=== PATIENT | male | born 1965 | race Caucasian/White ===

== ENCOUNTER 2016-06-20 05:24 | Inpatient (IN) | payer BC ==
[2016-06-13 17:24] LABS: HEMATOCRIT 45.7 % (40.0-51.0)
--- NOTE | ~2016-06-20 | OP ---
Record Of Operation [facility] [address] [place]. [address] NAME: CORINE MONTANEZ : 69 STATUS : ADM IN PAT#: [id number] AGE: 51 ADM/REG DATE : 06/20/16 MR#: [id number] REPORT SERV DATE: 06/20/16 DICTATED BY: KARL MARQUEZ DATE: 06/20/16 REPORT STATUS : Draft TRANSCRIBED BY: MODL DATE: 06/20/16 DATE OF PROCEDURE: PREOPERATIVE DIAGNOSES: 1. Grade 2 spondylolisthesis, severe spinal stenosis, right side, L4-5. 2. Gross instability, L4-5, secondary to the above. POSTOPERATIVE DIAGNOSES: 1. Grade 2 spondylolisthesis, severe spinal stenosis, right side, L4-5. 2. Gross instability, L4-5, secondary to the above. PROCEDURES: 1. Microscopic and navigation assisted surgery. 2. Right L4-5 hemilaminectomy, foraminotomy, facetectomy, transforaminal diskectomy, anterior interbody XPand cage. 3. Posterolateral interbody fusion with local bone graft allograft. 4. Posterior percutaneous Voyager instrumentation with reduction of spondylolisthesis, L4- 5. SURGEON: Karl Marquez D.O. VESSEL SLAGMAN: Hieu Olson. ANESTHESIA: General. BLOOD LOSS: 50 mL. INDICATIONS FOR SURGERY: Indications for surgery and risks were explained. They are listed in the last office note as well as the history and physical. See that for detail. DESCRIPTION OF PROCEDURE: Antibiotic prophylaxis given. Neurophysiology monitoring leads were inserted. The patient was brought to the operative suite. General anesthetic including endotracheal intubation was administered. Bowen catheter was placed with sterile technique. The patient was placed prone on a Sly spine frame. Bony prominences were carefully padded. Thoracolumbar spine scrubbed with Hibiclens solution. DuraPrep was painted. Sterile drapes applied. A small stab wound was carried out on a left posterior superior iliac spine. A percutaneous pin with navigational frame attached was inserted in the PSIS. Intraoperative CT scan with O-arm obtained. CT information used to register the navigational system. With navigational assistance, I identified L4-5 just lateral to the facet joint on the right side at L4-5. A 3 cm skin incision was carried out. A blunt navigated probe was placed through the fascia muscle and docked over the facet joint. Muscle dilators were inserted followed by placement of a tubular retractor attached to an arm mount on the table. The microscope was sterilely draped and used throughout the remainder of the procedure. Record Of Operation [facility] [address] [place]. [address] NAME: CORINE MONTANEZ : 69 STATUS : ADM IN PAT#: [id number] AGE: 51 ADM/REG DATE : 06/20/16 MR#: [id number] REPORT SERV DATE: 06/20/16 DICTATED BY: KARL MARQUEZ DATE: 06/20/16 REPORT STATUS : Draft TRANSCRIBED BY: BLANCA DATE: 06/20/16 With navigational assistance, I identified the top of the pedicle of L5 and the inferior pedicle of L4. I used a combination of a cutting bur, a tyrel bur, 2 and 3 mm Kerrison rongeurs and I dissected from lateral to medial removing the entire superior articular process of L5 down to the top of the pedicle. I removed the inferior articular process of L4, the lamina of L4, and I removed everything up to the pars defect. The reparative tissue in the pars defect was gently removed completely decompressing the thecal sac. The foramen was filled with disk material and found to have herniated posterior and rolled behind the body of L4. A transforaminal diskectomy was carried out with curettes, rongeurs, and disk lucía. Once the diskectomy and decompression were completed, the wound was irrigated. We then entered body trial. I packed the interbody space with local bone graft and allograft. The 32 mm XPand cage 10 mm in height originally was placed through the interbody grafts and seated against the anterior longitudinal ligament. The cage was expanded. A posterolateral interbody fusion was completed with additional bone grafting material. The retractor was then removed. On the left side, I carried out a 3 cm skin incision just lateral to the facet joint to match that on the right. Percutaneous Voyager pedicle tap and screw radiation officer were then used to tap the pedicles of L4 and 5 bilaterally. The polyaxial Voyager 7.5 x 55 mm screws were inserted at L4 and 5 bilaterally. After the screws were implanted, the 35 mm lordotic dumbbell rods were placed through the top portion of the screw extenders. The tha reduced into the tulip of the pedicle screws. The set screws inserted and tightened with a torque wrench providing rigid stability. Intraoperative CT scan with O-arm repeated showing excellent position of all implants. Final wound closure was carried out with usual fascial closure with 0 Vicryl sutures, subcutaneous tissue closed with 2-0 Vicryl sutures, 2-0 vertical mattress nylon suture used for skin closure. Sterile dressings applied. The patient awakened, extubated, and taken to the recovery room in satisfactory condition having tolerated procedure well. CODEY/BLANCA Karl Marquez D.O. / [id number] CC: Karl Marquez D.O.
--- NOTE | ~2016-06-20 | PREOPHP ---
PreOp History and Physical [facility] [address] [place]. [address] NAME: CORINE MONTANEZ : 69 STATUS : ADM IN PAT#: [id number] AGE: 51 ADM/REG DATE : 06/20/16 MR#: [id number] REPORT SERV DATE: 06/20/16 DICTATED BY: KARL MARQUEZ DATE: 06/20/16 REPORT STATUS : Draft TRANSCRIBED BY: MODIsmael DATE: 06/20/16 CHIEF COMPLAINT: Back pain, right greater than left leg pain. HISTORY OF PRESENT ILLNESS: This is a 51-year-old male with rather severe back pain, right hip, and leg pain that has been present for many months. The pain is 8 on a scale of 0 to 10. He has actually had some symptoms since he is a teenager, much worse recently. The patient's pain is much worse with increased activity. Nothing relieves the pain. He has been through lots of time, medication, therapy, conservative care of all types. He currently has a severe functional disability in activities of daily living as measured by the Oswestry Scale and he has a normal Zung depression score. The patient's plain x-rays revealed a grade 2 spondylolisthesis at L4-5. This is a lytic type 2 spondylolisthesis, not a degenerative spondylolisthesis. There was gross instability with lateral flexion and extensions. MRI shows severe foraminal stenosis on the right with impingement on the exiting L4 nerve root. The patient has failed conservative care, brought to surgery for a right-sided L4-5 hemilaminectomy, foraminotomy, facetectomy, transforaminal diskectomy, anterior interbody cage insertion, posterolateral interbody fusion with local bone graft allograft and posterior percutaneous Voyager instrumentation, with reduction of the spondylolisthesis. Prior to surgery, risks, benefits, alternatives, and expectations were explained in great detail. Consent form is signed. Please note, today the patient has been identified in preop raza. All questions were answered. The patient voiced understanding of the risks, willingness to accept those, and requested to proceed. Please note, because of the complexity of surgery and the need to identify the correct level of surgery intraoperatively as well as the desire to carry out the safest and most precise dissection, I felt intraoperative navigation was mandatory. PAST MEDICAL HISTORY: None. PAST SURGICAL HISTORY: He has had reconstruction of the tendon and then he had a surgery a year later for lysis of adhesions of the hand. CURRENT MEDICATIONS: Neurontin. ALLERGIES: NONE. SOCIAL HISTORY: He is . 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 Never smoked. Does not use any alcohol. FAMILY HISTORY: His father and mother had coronary artery disease. REVIEW OF SYSTEMS: Otherwise negative. PHYSICAL EXAMINATION: VITAL SIGNS: He is 6 feet 2 inches. Weight 250 pounds. PreOp History and Physical [address] [address] NAME: CORINE MONTANEZ : 69 STATUS : ADM IN [facility]#: [id number] AGE: 51 ADM/REG DATE : 06/20/16 MR#: [id number] REPORT SERV DATE: 06/20/16 DICTATED BY: KARL MARQUEZ DATE: 06/20/16 REPORT STATUS : Draft TRANSCRIBED BY: BLANCA DATE: 06/20/16 GENERAL: He is alert, cooperative, well oriented. Ambulates independently. HEENT: Exam is grossly normal. LUNGS: Clear to auscultation. HEART: Rate is regular and rhythmic. ABDOMEN: Soft with good bowel sounds. No peritoneal signs noted. MUSCULOSKELETAL: The spine has no gross deformities except that he can palpate the step-off when he flexes forward. He has limited range of motion due to the pain. He has no leg length discrepancy or pelvic obliquity. His motor strengths are normal except on the right side. His quadriceps is 4+ over 5. His tibialis anterior is 4-/5. He has decreased sensation in the L4 distribution to light touch. Patellar reflex on the right 1/4, all others are 2/4. No signs of myelopathy found. Toes are downgoing. No ankle clonus found. Sheng signs are negative. Fabere signs are negative. Orthopedically, he has no pain with moving hips, knees, or ankles. There are good pulses in all four extremities. No abnormal skin lesions are found. ASSESSMENT: Grade 2 spondylolisthesis, gross instability and severe foraminal stenosis on the right at L4-5. RECOMMENDATION: As listed above. CODEY/BLANCA Karl Marquez D.O. / [id number] CC: Karl Marquez D.O.
[~2016-06-20 05:24] MED LIST: *DENIES
[2016-06-20 11:39] LABS: BASOPHILS 0.6 %; BASOPHILS ABSOLUTE 0.04 10/3/uL (0.0-0.16); EOSINOPHILS 0.7 %; EOSINOPHILS ABSOLUTE 0.05 10/3/uL (0.0-0.53); HEMOGLOBIN 13.9 g/dL (13.6-17.8); IMMATURE GRANULOCYTES 0.6 %; IMMATURE GRANULOCYTES ABSOLUTE 0.04 10/3/uL (0.0-0.11); LYMPHOCYTES 14.4 %; LYMPHOCYTES ABSOLUTE 1.03 10/3/uL (0.67-4.30); MEAN CORPUS HGB CONC 32.3 g/dL (32.0-36.0); MEAN CORPUSCULAR HEMOGLOB 28.8 pg (26.0-34.0); MEAN PLATELET VOLUME 10.9 fL (9.2-13.0); MONOCYTES 2.5 %; MONOCYTES ABSOLUTE 0.18 10/3/uL (0.21-1.20); NEUTROPHILS 81.2 %; NEUTROPHILS ABSOLUTE 5.82 10/3/uL (2.02-8.40); PLATELET COUNT 166 10/3/uL (150-400); RBC DISTRIBUTION WIDTH 12.7 % (12.0-16.0); RED CELL COUNT 4.83 10/6/uL (4.7-6.1); WHITE BLOOD CELLS 7.2 10/3/uL (4.5-10.5)
[2016-06-20 11:40] LABS: MANUAL DIFF NO %
[2016-06-20 11:55] LABS: BUN (BLOOD UREA NITROGEN) 13 MG/DL (6-23); CALCIUM, SERUM 8.7 MG/DL (8.5-10.4); CHLORIDE, SERUM 110 MMOL/L (96-112); CO2 (CARBON DIOXIDE) 24 MMOL/L (24-34); CREATININE 1.37 MG/DL (0.70-1.30); GFR AFRICAN AMERICAN 70 ML/MIN (>=60); GFR NON AFRICAN AMERICAN 60 ML/MIN (>=60); GLUCOSE, SERUM 145 MG/DL (60-99); POTASSIUM, SERUM 4.4 MMOL/L (3.5-5.3); SODIUM, SERUM 142 MMOL/L (135-148)
[2016-06-21 04:51] LABS: BASOPHILS 0 %; EOSINOPHILS 0 %; HEMATOCRIT 41.8 % (40.0-51.0); HEMOGLOBIN 13.9 g/dL (13.6-17.8); IMMATURE GRANULOCYTES 0.2 %; IMMATURE GRANULOCYTES ABSOLUTE 0.02 10/3/uL (0.0-0.11); LYMPHOCYTES 3.8 %; LYMPHOCYTES ABSOLUTE 0.49 10/3/uL (0.67-4.30); MEAN CORPUS HGB CONC 33.3 g/dL (32.0-36.0); MEAN CORPUSCULAR HEMOGLOB 29.4 pg (26.0-34.0); MEAN CORPUSCULAR VOLUME 88.6 fL (80-100); MONOCYTES 6.9 %; MONOCYTES ABSOLUTE 0.89 10/3/uL (0.21-1.20); NEUTROPHILS 89.1 %; NEUTROPHILS ABSOLUTE 11.42 10/3/uL (2.02-8.40); PLATELET COUNT 171 10/3/uL (150-400); RBC DISTRIBUTION WIDTH 12.5 % (12.0-16.0); RED CELL COUNT 4.72 10/6/uL (4.7-6.1)
[2016-06-21 04:53] LABS: MANUAL DIFF NO %; WHITE BLOOD CELLS 12.8 10/3/uL (4.5-10.5)
[2016-06-21 05:03] LABS: BUN (BLOOD UREA NITROGEN) 12 MG/DL (6-23); CALCIUM, SERUM 9.1 MG/DL (8.5-10.4); CHLORIDE, SERUM 108 MMOL/L (96-112); CO2 (CARBON DIOXIDE) 25 MMOL/L (24-34); CREATININE 1.12 MG/DL (0.70-1.30); GFR AFRICAN AMERICAN 89 ML/MIN (>=60); GFR NON AFRICAN AMERICAN 77 ML/MIN (>=60); GLUCOSE, SERUM 153 MG/DL (60-99); POTASSIUM, SERUM 4.7 MMOL/L (3.5-5.3); SODIUM, SERUM 141 MMOL/L (135-148)
[2016-06-22] MEDS ORDERED: BACLOFEN20 MG PO (16:32)
[2016-06-22] MEDS ORDERED: DIL4TAB PO (16:32)
[2016-06-22] MEDS ORDERED: NEUR100 PO (16:33)
== END 2016-06-22 17:23 | disposition home or self-care (01) | DRG 460 ==
LOC: SDC/OF 05:24 → PACU 11:02 → 3SO 14:27
PROVIDERS: Orthopaedic Surgery Orthopaedic Surgery of the Spine
PROC: 0SG00AJ Fusion of Lumbar Vertebral Joint with Interbody Fusion Device, Posterior Approach, Anterior Column, Open Approach (ICD-10-PCS; principal; 2016-06-20 07:15)
PROC: 0ST20ZZ Resection of Lumbar Vertebral Disc, Open Approach (ICD-10-PCS; 2016-06-20 07:15)
PROC: 4A11X4G Monitoring of Peripheral Nervous Electrical Activity, Intraoperative, External Approach (ICD-10-PCS; 2016-06-20 07:15)
DX: M51.36 Other intervertebral disc degeneration, lumbar region (principal); I10 Essential (primary) hypertension; G47.33 Obstructive sleep apnea (adult) (pediatric)
CPT/HCPCS: 36415; 80048; 82962; 85014; 85018; 85025; 86850; 86900; 86901; 87641; 88304; 88311; 97116-GP; 97162-GP; A9270-GY; C1713; J0690; J1170; J1644; J2250; J2405; J2550; J2710; J2930; J3010